=== PATIENT | male | born 1990 | race Caucasian/White ===

== ENCOUNTER 2018-09-11 22:46 | Emergency (ER) | payer OTHER ==
[~2018-09-11] VITALS: Ht 170.2 cm; Wt 88.0 kg
[2018-09-11 22:51] VITALS: Ht 170.2 cm; Wt 88.0 kg
[2018-09-12 00:28] VITALS: BP 128/75
== END 2018-09-12 00:28 | disposition home or self-care (01) ==
LOC: ED 22:46
DX: R51 Headache (principal); R42 Dizziness and giddiness; R11.0 Nausea; Z87.442 Personal history of urinary calculi
CPT/HCPCS: J1885; J8597; Q0162

== ENCOUNTER 2019-02-24 21:22 | Emergency (ER) | payer OTHER ==
[~2019-02-24] VITALS: Ht 170.2 cm; Wt 88.9 kg
[2019-02-24 21:28] VITALS: Ht 170.2 cm; Wt 88.9 kg
[2019-02-25 01:23] VITALS: BP 128/71
== END 2019-02-25 01:23 | disposition home or self-care (01) ==
LOC: ED 21:22
DX: H83.09 Labyrinthitis, unspecified ear (principal); R42 Dizziness and giddiness; R51 Headache
CPT/HCPCS: J8597; Q0162

== ENCOUNTER 2019-03-19 22:51 | Emergency (ER) | payer OTHER ==
[~2019-03-19] VITALS: Ht 170.2 cm; Wt 91.4 kg
[2019-03-19 22:55] VITALS: Ht 170.2 cm; Wt 91.4 kg
[2019-03-20 00:17] VITALS: BP 130/69
== END 2019-03-20 00:17 | disposition home or self-care (01) ==
LOC: ED 22:51
DX: S05.01XA Injury of conjunctiva and corneal abrasion without foreign body, right eye, initial encounter (principal); Z87.442 Personal history of urinary calculi; X58.XXXA Exposure to other specified factors, initial encounter; Y93.89 Activity, other specified; Y92.89 Other specified places as the place of occurrence of the external cause; Y99.8 Other external cause status